=== PATIENT | male | born 1980 | race African-American/Black ===

== ENCOUNTER 2018-07-07 16:58 | Emergency (ER) | payer BC ==
[~2018-07-07] VITALS: Ht 185.4 cm; Wt 104.3 kg
== END 2018-07-07 18:42 | disposition home or self-care (01) ==
LOC: FSED 16:58
DX: R50.9 Fever, unspecified (principal); R05 Cough; J11.1 Influenza due to unidentified influenza virus with other respiratory manifestations
CPT/HCPCS: 87400; 99283

== ENCOUNTER 2018-12-12 09:02 | Emergency (ER) | payer BC ==
[~2018-12-12] VITALS: Ht 185.4 cm; Wt 104.3 kg
[2018-12-12 09:45] LABS: BASOPHILS % 0.4 % (0.0-1.0); EOSINOPHILS # (AUTO) 0.3 (0.0-0.4); HEMATOCRIT 46.1 % (38.2-49.6); HEMOGLOBIN 15.8 g/dL (14.0-18.0); LYMPHOCYTES # (AUTO) 2.4 (1.0-3.2); LYMPHOCYTES % 47.3 % (18.0-39.1); MEAN CORPUSCULAR HEMOGLOBIN 27.5 pg (28-32); MEAN CORPUSCULAR HGB CONC 34.3 g/dL (31-35); MEAN CORPUSCULAR VOLUME 80.3 fL (81-99); MONOCYTES # (AUTO) 0.5 (0.2-0.8); MONOCYTES % 9.4 % (4.4-11.3); NEUTROPHILS # (AUTO) 1.9 (2.1-6.9); NEUTROPHILS % 37.5 % (38.7-80.0); PLATELET COUNT 242 x10e3/uL (140-360); RED BLOOD COUNT 5.74 x10e6/uL (4.3-5.7); RED CELL DISTRIBUTION WIDTH 14.3 % (11.7-14.4)
[2018-12-12 10:01] LABS: ANION GAP 17.1 mmol/L (8-16); BLOOD UREA NITROGEN 17 mg/dL (7-26); BUN/CREATININE RATIO 14 (6-25); CALCIUM 9.5 mg/dL (8.4-10.2); CARBON DIOXIDE 23 mmol/L (22-29); CHLORIDE 103 mmol/L (98-107); CREATINE KINASE 394 IU/L (30-200); CREATININE, SERUM 1.25 mg/dL (0.72-1.25); EST GLOMERULAR FILTRATION RATE > 60 ML/MIN (60-); GLUCOSE 117 mg/dL (74-118); POTASSIUM 4.1 mmol/L (3.5-5.1); SODIUM 139 mmol/L (136-145)
--- NOTE | 2018-12-12 10:42 | Diagnostic Imaging Report ---
Examination: Single AP view of the chest. COMPARISON: None. INDICATION: Chest pain DISCUSSION: Lines/tubes: None. Lungs: The lungs are well inflated and clear. No pneumonia or pulmonary edema. Pleura: No pleural effusion or pneumothorax. Heart and mediastinum: The heart and the mediastinum are unremarkable. Bones and soft tissues: No acute bony abnormalities. IMPRESSION: 1. No acute cardiopulmonary abnormalities. Signed by: Dr. Taiwo Springer M.D. on 12/12/2018 10:38 AM
[2018-12-12 10:43] VITALS: BP 142/98
== END 2018-12-12 10:54 | disposition home or self-care (01) ==
LOC: ER 09:02
DX: R07.89 Other chest pain (principal); Z94.7 Corneal transplant status
CPT/HCPCS: 36415; 71045; 80048; 82550; 82553; 84484; 85025; 85379; 93005; 99283